=== PATIENT | male | born 1985 | race Caucasian/White ===

== ENCOUNTER 2017-05-22 10:22 | Emergency (ER) | payer MEDICAID ==
[~2017-05-22] VITALS: Ht 170.2 cm; Wt 66.5 kg
[2017-05-22 10:46] VITALS: Ht 170.2 cm; Wt 66.5 kg
[2017-05-22 12:43] LABS: BASOPHIL % 0.3 % (0-2); PLATELET COUNT 334 x10^3mcL (130-400); RED CELL DISTRIBUTION WIDTH 13.7 % (11.5-14.5)
[2017-05-22 12:44] LABS: microscopic required? YES; urine erythrocyte NEGATIVE (NEGATIVE)
[2017-05-22 12:54] LABS: CALCIUM 9.1 mg/dL (8.5-10.1); CARBON DIOXIDE 26.7 mmol/L (21-32); CHLORIDE SERUM 104 mmol/L (98-107); CREATININE SERUM 0.9 mg/dL (0.7-1.3); GFR1 > 60 mL/min; GLUCOSE SERUM 85 mg/dL (74-106); POTASSIUM SERUM 3.6 mmol/L (3.5-5.1); SODIUM SERUM 140 mmol/L (136-145)
[2017-05-22 12:58] LABS: ALBUMIN 4.7 g/dL (3.4-5.0); ALKALINE PHOSPHATASE 45 U/L (46-116); ALT/SGPT 36 U/L (16-63); AMYLASE 98 U/L (25-115); AST/SGOT 22 U/L (15-37); BILIRUBIN TOTAL 0.6 mg/dL (0.20-1.00); LIPASE 159 IU/L (73-393); TOTAL PROTEIN, SERUM 8.2 g/dL (6.4-8.2)
[2017-05-22 14:46] VITALS: BP 120/77
== END 2017-05-22 14:46 | disposition home or self-care (01) ==
LOC: ED 10:22
PROVIDERS: Emergency Medicine
DX: R10.9 Unspecified abdominal pain (principal); D72.829 Elevated white blood cell count, unspecified; F12.90 Cannabis use, unspecified, uncomplicated
CPT/HCPCS: 36415